=== PATIENT | female | born 1940 | race Caucasian/White ===

== ENCOUNTER 2018-10-26 09:58 | Emergency (ER) | payer MEDICARE, BC ==
[2018-10-26] MEDS ORDERED: Ketorolac Tromethamine 30 MG/ML VIAL ONE (10:20)
[2018-10-26 10:44] LABS: Bilirubin Negative (Negative); Blood, Urine Trace (Negative); Clarity Slightly Cloudy (Clear); Glucose, Urine (Dipstick) Negative (Negative); Leukocyte Negative (Negative); Nitrite Negative (Negative); Protein, Urine (Dipstick) Negative (Neg-Trace); Urobilinogen 0.2 mg/dL (0.2-1.0)
[2018-10-26 10:49] LABS: Bacteria/HPF Rare-Few HPF (None Seen); RBC/HPF 0-3 HPF (0-3); WBC/HPF 0-3 HPF (0-3)
[2018-10-26 10:50] LABS: Hyaline Casts/LPF NONE SEEN LPF (0-3 Hyaline)
--- NOTE | 2018-10-26 11:15 | RAD ---
LUMBAR SPINE 2 VIEWS: Date: 10/26/18 COMPARISON: None. HISTORY: Pain, injury. FINDINGS: Five lumbar-type vertebral bodies are present with intact pedicles on frontal imaging. There is disc space narrowing with degenerative end plate change at the lumbosacral junction with anterolisthesis o f L5 on S1 measuring 8.0 mm. L5 pars defects are suspected. There is atherosclerotic calcification of the abdominal aorta. IMPRESSION: Degenerative changes at L5-S1 with 8.0 mm of anterolisthesis. Probable L5 pars defects. Oblique imagi ng or CT would be beneficial to evaluate for L5 pars defects. POS: [facility]
--- NOTE | 2018-10-26 11:16 | RAD ---
CHEST 2 VIEWS: Date: 10/26/18 COMPARISON: None. HISTORY: Fall, right-sided pain. FINDINGS: There is atherosclerotic calcification of the aortic arch. There are severe degenerative changes invo lving the glenohumeral joint on the right with prominent joint space narrowing, subchondral sclerosis , and intraarticular loose bodies. No pneumothorax or pleural fluid. No focal consolidation or alveol ar edema. 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 No evidence for focal consolidation or a lveolar edema. POS: [facility]
[2018-10-26 11:24] LABS: #Basophils 0.1 thou/uL (0.0-0.2); #Lymphocytes 1.5 thou/uL (1.20-3.40); #Monocytes 1.3 thou/uL (0.11-0.59); #Neutrophils 8.3 thou/uL (1.40-6.50); %Basophils 0.6 % (0.0-1.0); %Eosinophils 0.2 % (0.0-10.0); %Lymphocytes 13.4 % (21.0-51.0); %Monocytes 11.4 % (0.0-10.0); %Neutrophils 74.4 % (42.0-75.0); Hemoglobin 13.7 g/dL (12.0-16.0); Mean Corpuscular HGB CONC 32.2 g/dL (32.0-36.0); Mean Corpuscular Hemoglobin 28.9 pg (27.0-31.0); Mean Corpuscular Volume 89.9 fL (78.0-98.0); Mean Platelet Volume 7.4 fL (7.4-10.4); Platelet Count 300 thou/uL (130-400); RBC Distribution Width 13.1 % (11.5-14.5); Red Blood Cell (RBC) Count 4.74 mill/uL (4.20-5.40); White Blood Cell (WBC) Count 11.1 thou/uL (4.8-10.8)
[2018-10-26 11:38] LABS: Anion Gap 13 mmol/L (10-20); BUN (Urea Nitrogen) 20 mg/dL (9.8-20.1); Calc. Creatinine Clearance 0 mL/min (70-130); Calcium 10.1 mg/dL (7.8-10.44); Carbon Dioxide 27 mmol/L (23-31); Chloride 103 mmol/L (98-107); Estimated GFR-MDRD 66; Glucose 118 mg/dL (83-110); Potassium 3.6 mmol/L (3.5-5.1); Sodium 139 mmol/L (136-145)
--- NOTE | 2018-10-26 13:47 | CT ---
CHEST CT: Date: 10/26/18 COMPARISON: None. HISTORY: Injury, trauma, pain. Recent fall with right-sided injury. TECHNIQUE: Axial CT imaging obtained at 5 mm intervals from the thoracic inlet through the upper abdomen without IV contrast. Coronal reformatted imaging obtained. FINDINGS: Evaluation for lymphadenopathy and evaluation of the vascular structures is limited without IV contra st media. There is no evidence for lymphadenopathy within the chest. The patient is status post left mastectomy and there are postoperative clips in the left axillary region. There is coronary arterial calcification. There is atherosclerotic calcification of the aortic arch and the descending thoracic aorta. There is trace right pleural fluid. No mediastinal or pericardial fluid. No left pleural fluid. No pneumothorax is evident on either side. Scattered mild centrilobular emphysematous changes are not ed involving bilateral upper lobes. No discrete pulmonary parenchymal mass lesion or nodule is noted on either side. There are severe degenerative changes of the right glenohumeral joint with joint space narrowing, ost eophyte formation, subchondral sclerosis, and intraarticular loose body formation. There is a mildly displaced right-sided 8th, 9th, and 10th rib fracture. No left-sided rib fractures are seen. Review of the osseous structures demonstrate no additional fracture deformity. IMPRESSION: Fracture deformities of the right 8th, 9th, and 10th ribs with a trace amount of associated right ple ural fluid. No pneumothorax evident. Additional incidental findings as detailed above. POS: [facility]
--- NOTE | 2018-10-26 14:03 | CT ---
CT ABDOMEN AND PELVIS: 10/26/2018 HISTORY: Fall. Trauma. Pain. COMPARISON: None. TECHNIQUE: Axial CT imaging is obtained at 5 mm intervals, from the lung bases through the pubic symphysis, with IV contrast. Coronal and sagittal reformatted imaging obtained. FINDINGS: Small, sliding type hiatal hernia. Imaged lung base is unremarkable. No free intraperitoneal air or fluid. Small fat-containing umbilical hernia. The liver, spleen, pancreas, adrenal glands, gallbladder, and kidneys demonstrate no acute findings. The uterus is surgically absent. There is sigmoid diverticulosis. No evidence for diverticulitis. No evidence for bowel inflammatory change or bowel obstruction. The appendix is unremarkable. There is multifocal atherosclerotic calcification of the abdominal aorta and its branches. The retro peritoneum, mesentery, and pelvis demonstrate no evidence for lymphadenopathy. No widening of the sacroiliac joints or pubic symphysis. No acute fracture or dislocation is seen wi thin the pelvis. Bilateral L5 pars defects are present with anterolisthesis of L5 on S1 measuring 9 mm. There is asso ciated bilateral neural foraminal stenosis at the lumbosacral junction. There is disk space narrowin g and degenerative endplate change at L5-S1. There are mildly displaced posterior right-sided 10th, 9th, and 8th rib fractures. IMPRESSION: 1. Incomplete assessment of right-sided ribs demonstrates numerous mildly displaced posterior right- sided rib fractures. No additional posttraumatic abnormalities are seen. CT examination of the ches t is suggested for full assessment of posttraumatic changes within the chest. POS: [facility]
== END 2018-10-26 13:14 | disposition home or self-care (01) ==
LOC: SCSER 09:58
DX: S22.41XA Multiple fractures of ribs, right side, initial encounter for closed fracture (principal); S30.0XXA Contusion of lower back and pelvis, initial encounter; I10 Essential (primary) hypertension; F03.90 Unspecified dementia, unspecified severity, without behavioral disturbance, psychotic disturbance, mood disturbance, and anxiety; E03.9 Hypothyroidism, unspecified; W01.0XXA Fall on same level from slipping, tripping and stumbling without subsequent striking against object, initial encounter
CPT/HCPCS: 71046; 71270; 72100; 74177; 80048; 81003; 81015; 85025; 96372; 96374; J1885; J2270

== ENCOUNTER 2021-06-24 10:08 | Emergency (ER) | payer MEDICARE, BC ==
[2021-06-24 10:59] LABS: #Basophils 0.1 thou/uL (0.0-0.2); #Eosinphils 0.1 thou/uL (0.0-0.7); #Lymphocytes 1.7 thou/uL (1.20-3.40); #Neutrophils 6.6 thou/uL (1.40-6.50); %Basophils 0.5 % (0.0-1.0); %Eosinophils 0.9 % (0.0-10.0); %Monocytes 10.2 % (0.0-10.0); %Neutrophils 70.3 % (42.0-75.0); Hemoglobin 14.3 g/dL (12.0-16.0); Mean Corpuscular HGB CONC 33.3 g/dL (32.0-36.0); Mean Corpuscular Hemoglobin 30.5 pg (27.0-31.0); Mean Corpuscular Volume 91.7 fL (78.0-98.0); Mean Platelet Volume 6.9 fL (7.4-10.4); Platelet Count 346 thou/uL (130-400); RBC Distribution Width 13.5 % (11.5-14.5); Red Blood Cell (RBC) Count 4.69 mill/uL (4.20-5.40); White Blood Cell (WBC) Count 9.5 thou/uL (4.8-10.8)
[2021-06-24 11:21] LABS: ALT (SGPT) Less than 7 U/L (8-55); AST (SGOT) 27 U/L (5-34); Albumin 3.8 g/dL (3.4-4.8); Alkaline Phosphatase 70 U/L (40-110); Anion Gap 11 mmol/L (10-20); BUN (Urea Nitrogen) 19 mg/dL (9.8-20.1); Bilirubin, Total 0.4 mg/dL (0.2-1.2); Calc. Creatinine Clearance 0 mL/min (70-130); Calcium 9.6 mg/dL (7.8-10.44); Carbon Dioxide 30 mmol/L (23-31); Chloride 101 mmol/L (98-107); Glucose 98 mg/dL (83-110); Potassium 4.5 mmol/L (3.5-5.1); Protein, Total 6.8 g/dL (5.8-8.1); Sodium 137 mmol/L (136-145)
[2021-06-24 12:28] LABS: Bacteria/HPF 1+ HPF (None Seen); Bilirubin Negative (Negative); Blood, Urine 2+ (Negative); Clarity Clear (Clear); Glucose, Urine (Dipstick) Normal (Negative); Ketone, Urine Negative (Negative); Leukocyte Negative Leu/uL (Negative); Nitrite Negative (Negative); Protein, Urine (Dipstick) Negative (Neg-Trace); RBC/HPF 21-50 HPF (0-3); Specific Gravity, Urine 1.007 (1.002-1.036); Squamous Epithelial 0-3 HPF (0-3); Urobilinogen Normal mg/dL (Less than 2); WBC/HPF 0-3 HPF (0-3)
== END 2021-06-24 13:35 | disposition home or self-care (01) ==
LOC: ERS 10:08
DX: I10 Essential (primary) hypertension (principal); R45.1 Restlessness and agitation; Z86.16 Personal history of COVID-19; E03.9 Hypothyroidism, unspecified
CPT/HCPCS: 36415; 71045; 80053; 81003; 81015; 84484; 85025; 87077; 87086; 87186; 93005

== ENCOUNTER 2021-12-14 09:44 | Outpatient (CLI) | payer MEDICARE, BC | END 2021-12-14 09:45 | disposition home or self-care (01) | LOC: TBSIIMAG 09:44 | PROVIDERS: ATTEND Physician Assistant | DX: S32.011D Stable burst fracture of first lumbar vertebra, subsequent encounter for fracture with routine healing (principal) | CPT/HCPCS: 72072; 72100 ==